=== PATIENT | female | born 1950 | race Caucasian/White ===

== ENCOUNTER 2017-09-03 15:17 | Emergency (ER) | payer OTHER, MEDICARE ==
[~2017-09-03] VITALS: Ht 162.6 cm; Wt 67.9 kg
[~2017-09-03 15:17] MED LIST: IBUP600 PO; LORA10TA PO; OXYB5TAB PO; PRIL10CA PO
[2017-09-03 15:22] VITALS: BP 160/81; PULSE 61; RESP 18; TEMP 97.3; O2SAT 95
--- NOTE | 2017-09-03 15:46 | PD ---
HPI Chief Complaint: Musculoskeletal Complaint Time Seen by Provider: 15:38 Travel History International Travel<30 days: No Contact w/Intl Traveler<30days: No Traveled to known affect area: No History of Present Illness HPI 67-year-old female presents to the emergency Department with an injury to the right elbow and hand after bracing a piece of furniture that was falling today. She is right-handed. She denies numbness, tingling, or weakness of the hand. States that the pain has increased over the second MCP area, constant, dull. She has a history of a "bone chip" on her right elbow and is concerned that this has 'dislodged'. She does have full range of motion however this is painful. Denies chronic cardiac, pulmonary or kidney issues. PFSH Past Medical History Arthritis: Yes Heart Rhythm Problems: Yes ("IRREGULAR HEART BEATS") Cancer: No Cardiovascular Problems: Yes Diminished Hearing: No Diverticulitis: Yes (CHRONIC, LAST SEEN IN APRIL 2008) Endocrine: No Gastrointestinal Disorders: Yes GERD: Yes Genitourinary: Yes Hiatal Hernia: Yes Implanted Vascular Access Dvce: Yes Kidney Stones: Yes Musculoskeletal: Yes Neurologic: Yes Psychiatric: No Reproductive: Yes ( LEFT BREAST BIOPSY) Respiratory: Yes Sleep Apnea: Yes (CPAP AT NIGHT) Ulcer: Yes Influenza Vaccination: No ?: Not : 1 Para: 1 Past Surgical History Body Medical Devices: MARKER IN LT BREAST Cholecystectomy: Yes Genitourinary Surgery: Yes (BLADDER SLING) Gynecologic Surgery: Yes (L BREAST BX) Hysterectomy: Yes Pacemaker: No Other Surgery: Yes Social History Alcohol Use: No Tobacco Use: No Substance Use: No Allergies-Medications (Allergen,Severity, Reaction): Coded Allergies: ciprofloxacin (Unverified Allergy, Severe, RASH GENET HIVES FACE AND BODY, 09/03/17) codeine (Unverified Allergy, Severe, HEADACHE, 09/03/17) iodine (Unverified Allergy, Severe, CONFUSED, 09/03/17) . potassium iodide (Unverified Allergy, Severe, CONFUSED, 09/03/17) . povidone-iodine (Unverified Allergy, Severe, CONFUSED, 09/03/17) . sodium iodide (Unverified Allergy, Severe, CONFUSED, 09/03/17) . sodium iodide (Unverified Allergy, Severe, CONFUSED, 09/03/17) . acetaminophen (Unverified Adverse Reaction, Severe, HEADACHE, 09/03/17) hydrocodone (Unverified Adverse Reaction, Severe, HEADACHE, 09/03/17) Reported Meds & Prescriptions Reported Meds & Active Scripts Active No Active Prescriptions or Reported Medications Review of Systems Except as stated in HPI: all other systems reviewed are Neg Physical Exam Narrative GENERAL: Well-nourished, well-developed patient. SKIN: Focused skin assessment warm/dry. HEAD: Normocephalic. EYES: No scleral icterus. No injection or drainage. NECK: Supple, trachea midline. No JVD or lymphadenopathy. CARDIOVASCULAR: Regular rate and rhythm without murmurs, gallops, or rubs. RESPIRATORY: Breath sounds equal bilaterally. No accessory muscle use. MUSCULOSKELETAL: No cyanosis, or edema. Right hand: Ecchymosis over the right second MCP joint with tenderness to palpation. No crepitus or deformities. Neurovascular intact Right elbow: Full range of motion with mild tenderness to palpation of the medial epicondyle. Neurovascularly intact BACK: Nontender without obvious deformity. No CVA tenderness. Data Data Last Documented VS Vital Signs Date Time Temp Pulse Resp B/P (MAP) Pulse Ox O2 Delivery O2 Flow Rate FiO2 09/03/17 15:22 97.3 61 18 160/81 (107) 95 Orders Orders Elbow, Limited (Ap&Lat) (09/03/17 ) Hand, Limited (2vws) (09/03/17 ) Ed Discharge Order (09/03/17 16:28) Splint Or Brace Apply/Monitor (09/03/17 16:30) MDM Medical Decision Making Medical Screen Exam Complete: Yes Emergency Medical Condition: Yes Differential Diagnosis Right hand fracture versus contusion versus sprain Right elbow fracture versus sprain versus strain versus contusion Narrative Course 67-year-old female presents to emergency department with right hand and elbow pain after an injury that occurred just prior to arrival. She describes a FOOSH injury that occurred while she was bracing a piece of furniture that was falling. Physical exam demonstrates ecchymosis to the right second MCP with tenderness to palpation. Elbow mild to palpation of the medial epicondyle. No deformities noted. Neurovascular intact Patient has a contusion to the hand and elbow. [id number] Tylenol and Motrin for pain relief. Advised to follow-up with her primary care physician for further treatment and evaluation Advised when to return to the ED Diagnosis Primary Impression: Hand contusion Qualified Codes: S60.221A - Contusion of right hand, initial encounter Additional Impression: Elbow contusion Qualified Codes: S50.01XA - Contusion of right elbow, initial encounter Referrals: Primary Care Physician Additional Instructions: Return to primary care physician within 2 days for reevaluation And emergency department if he develops increased swelling, pain or numbness and tingling Scripts No Active Prescriptions or Reported Meds Disposition: 01 DISCHARGE HOME Condition: Stable Alyson Meng Sep 03, 2017 15:46
--- NOTE | 2017-09-03 16:14 | RADRPT ---
EXAM DATE/TIME: 09/03/2017 15:59 [facility] COMPARISON: No previous studies available for comparison. INDICATIONS : Night stand fell on right arm MEDICAL HISTORY : None. SURGICAL HISTORY : None. ENCOUNTER: Initial ACUITY: 1 day PAIN SCORE: 7/10 LOCATION: Right elbow FINDINGS: Two view examination of the right elbow demonstrates no soft tissue swelling, joint effusion, fractur e or dislocation. Bony mineralization is normal. CONCLUSION: Unremarkable limited examination of the right elbow. Jean Mayen Jr., MD on September 03, 2017 at 16:12 Board Certified Radiologist. This report was verified electronically.
--- NOTE | 2017-09-03 16:15 | RADRPT ---
EXAM DATE/TIME: 09/03/2017 16:03 [facility] COMPARISON: No previous studies available for comparison. INDICATIONS : Night stand fell on right hand MEDICAL HISTORY : None. SURGICAL HISTORY : None. ENCOUNTER: Initial ACUITY: 1 day PAIN SCORE: 7/10 LOCATION: Right hand FINDINGS: Two view examination of the right hand demonstrates no soft tissue swelling, dislocation, or fracture . The joint spaces are maintained. Bony mineralization is normal. CONCLUSION: No acute disease. Jean Mayen Jr., MD on September 03, 2017 at 16:13 Board Certified Radiologist. This report was verified electronically.
== END 2017-09-03 16:44 | disposition home or self-care (01) ==
LOC: PHEFT 15:17
DX: S60.221A Contusion of right hand, initial encounter (principal); S50.01XA Contusion of right elbow, initial encounter; W20.8XXA Other cause of strike by thrown, projected or falling object, initial encounter
CPT/HCPCS: 73070; 73120; 99283; L3908